=== PATIENT | female | born 2000 | race Asian ===

== ENCOUNTER 2019-08-20 13:25 | Inpatient (IN) ==
[2019-08-20 14:06] LABS: Basophils # (auto) 0.01 K/uL (0-0.2); Basophils % (auto) 0.1 %; Eosinophils # (auto) 0.35 K/uL (0-0.5); Eosinophils % (auto) 3.7 %; Hematocrit (blood only) 41.7 % (37-47); Immature Granulocytes # (auto) 0.02 K/uL (0.00-0.02); Immature Granulocytes % (auto) 0.2 %; Mean Corpuscular Hemoglobin 29.2 pg (25-34); Mean Corpuscular Hgb Conc 33.6 g/dL (32-36); Mean Corpuscular Volume 87.1 fL (80-100); Mean Platelet Volume 11.1 fL (7.4-10.4); Monocytes # (auto) 0.57 K/uL (0.11-0.59); Monocytes % (auto) 6.1 %; Neutrophils # (auto) 6.99 K/uL (1.4-6.5); Neutrophils % (auto) 74.9 %; Platelet Count 233 K/uL (130-400); RDW Coefficient of Variation 12.9 % (11.5-14.5); RDW Standard Deviation 41.2 fL (36.4-46.3); Red Blood Count 4.79 M/uL (4.2-5.4); White Blood Count 9.34 K/uL (4.8-10.8)
[2019-08-20 14:17] LABS: Appearance Urine Clear (Clear); Bilirubin Urine Negative (Negative); Blood Urine Negative (Negative); Color Urine Yellow; Glucose Urine UA Negative (Negative); Ketones Urine Trace (Negative); Leukocyte Esterase Urine Negative (Negative); Nitrite Urine Negative (Negative); Protein Urine Negative (Negative); Specific Gravity Urine 1.019 (1.000-1.030); Urobilinogen Urine Negative (Negative)
[2019-08-20 14:22] LABS: Amphetamines+Metham, Urine Neg (Neg); Barbiturates, Urine Neg (Neg); Benzodiazepine, Urine Neg (Neg); Cocaine, Urine Neg (Neg); MDMA (Ecstacy), Urine Neg (Neg); Methadone, Urine Neg (Neg); Opiate, Urine Neg (Neg); Phencyclidine, Urine Neg (Neg)
[2019-08-20 14:23] LABS: Albumin Level 3.9 gm/dl (3.4-5.0); BUN Creatinine Ratio 13.7 (10-20); Calcium 9.2 mg/dl (8.5-10.1); Creatinine Clr Calc Pharmacy 127.3 ml/min; Est GFR (Non-African American) 112.1; Potassium 3.7 mmol/L (3.5-5.1)
[2019-08-20 14:34] LABS: Bilirubin,Total 0.5 mg/dl (0.2-1); Thyroid Stimulating Hormone 1.6 uIu/ml (0.300-4.500); Total Protein 7.9 gm/dl (6.4-8.2)
[2019-08-20 15:05] LABS: Acetaminophen < 2 ug/ml (10-30); Salicylate < 1.7 mg/dl (2.8-20)
--- NOTE | 2019-08-20 15:16 | Emergency Department Note ---
Entered by Melecio Buitrago acting as a scribe for Bahman Bañuelos MD History of Present Illness General Chief complaint: Mental Health Evaluation Stated complaint: DEPRESSION,THOUGHTS OF SUICIDE Time Seen by Provider: 08/20/19 13:39 Source: patient History of Present Illness Provider complaint: Suicidal ideation Onset (ago): hour(s) less than 1 Location: head Pain Consistency: + constant Quality: + other (mental health ) Associated symptoms: + denies other symptoms The patient is a 19 y/o female with a past medical history of, who presents to the emergency department for a mental health evaluation. The patient came from [facility], where they state she has a plan to jump out of her apartment building on Monday. The patient states that she has depression and she has been struggling recently. She notes that many stressors contribute to her depression. The patient states that she has self-harmed in the past with the most recent being a month or two ago. She reports she sees a therapist and has had the depression since she was 11 y/o but has not taken medication. She notes that she planned to do the plan on Monday because she has a formal that day and wanted to end on a good note. The patient denies homicidal ideation and any other symptoms. Home Medications Home Medications Medication Instructions Recorded Confirmed Type No Known Home Medications 08/20/19 08/20/19 History Allergies Allergy/AdvReac Type Severity Reaction Status Date / Time No Known Allergies Allergy Unverified 08/20/19 15:08 Past Med/Surg History Medical History Depression Surgical History No pertinent past surgical history Social History Smoking Status: Never smoker Review of Systems See HPI for pertinent positives & negatives. and A total of 10 systems reviewed and were otherwise negative Physical Exam Vital Signs Vital Signs - 24 hr 08/20/19 13:27 Temperature 36.5 C Temperature Source Oral Pulse Rate 99 H Respiratory Rate 18 Respiratory Effort / Characteristics Non-Labored Spontaneous Respiratory Depth Normal Blood Pressure 135/82 Blood Pressure Mean 99 Pulse Oximetry 97 Oxygen Delivery Method Room Air Sepsis Recent Fever Within 48 Hours No Sepsis New/Unexplained Change in Mental Status No Sepsis Action Taken by Nursing No Action Required GENERAL: Well appearing, well nourished, NAD, non-toxic. EYE EXAM: Normal conjunctiva. PERRL, no anisocoria and EOM's grossly intact w/o pain. OROPHARYNX: Moist mucus membranes. Grossly normal dentition. NECK: Supple, no nuchal rigidity, no adenopathy, non-tender. No signs of meningismus. LUNGS: Clear to auscultation. Normal chest wall mechanics. HEART: NSR, no MRG. ABDOMEN: Abdomen soft, non-tender, normo-active bowel sounds, no masses, no rebound or guarding. BACK: No CVA TTP. SKIN: No rashes and no bruising. UPPER EXTREMITIES: Upper extremities are grossly normal. LOWER EXTREMITIES: No pitting edema. No calf pain. NEURO EXAM: A&O x3, cranial nerves II-XII grossly intact, normal speech, moves all 4 extremities on command w/o issue. PSYCH: depressed mood, positive SI, No HI AVH. Course Course 1400: Past medical records reviewed. The patient was evaluated in room A07. A complete history and physical exam was performed. 1513: The patient was transferred to [address] [place] [address]. Medical Decision Making Differential Diagnosis differential includes toxic ingestions, self-mutilation, suicidal ideation, suicide attempt, depression. Medical Records Attestation: I reviewed the patient's medical records. Home Medications Current Medication List: was personally reviewed by me Laboratory Data Attestation: I reviewed the patient's lab results. Result diagrams: 08/20/19 13:47 08/20/19 13:47 Lab Results 08/20/19 08/20/19 08/20/19 Range/Units 13:30 13:30 13:30 WBC (4.8-10.8) K/uL RBC (4.2-5.4) M/uL Hgb (12.0-16.0) g/dL Hct (37-47) % MCV (80-100) fL MCH (25-34) pg MCHC (32-36) g/dL RDW Std Deviation (36.4-46.3) fL RDW Coeff of Nina (11.5-14.5) % Plt Count (130-400) K/uL MPV (7.4-10.4) fL Immature Gran % (Auto) % Neut % (Auto) % Lymph % (Auto) % Frio % (Auto) % Eos % (Auto) % Baso % (Auto) % Immature Gran # (Auto) (0.00-0.02) K/uL Neut # (Auto) (1.4-6.5) K/uL Lymph # (Auto) (1.2-3.4) K/uL Frio # (Auto) (0.11-0.59) K/uL Eos # (Auto) (0-0.5) K/uL Baso # (Auto) (0-0.2) K/uL Sodium (136-145) mmol/L Potassium (3.5-5.1) mmol/L Chloride (98-107) mmol/L Carbon Dioxide (21-32) mmol/L Anion Gap (3-11) BUN (7-18) mg/dl Creatinine (0.6-1.2) mg/dl Est Cr Clr Drug Dosing ml/min Est GFR ( Amer) Est GFR (Non-Af Amer) BUN/Creatinine Ratio (10-20) Glucose (70-99) mg/dl Calcium (8.5-10.1) mg/dl Total Bilirubin (0.2-1) mg/dl AST (15-37) U/L ALT (12-78) U/L Alkaline Phosphatase (45-117) U/L Total Protein (6.4-8.2) gm/dl Albumin (3.4-5.0) gm/dl Globulin (2.5-4.0) gm/dl Albumin/Globulin Ratio (0.9-2) TSH (0.300-4.500) uIu/ml Urine Color Yellow Urine Appearance Clear (Clear) Urine pH 7.0 (4.5-7.5) Ur Specific Franklin 1.019 (1.000-1.030) Urine Protein Negative (Negative) Urine Glucose (UA) Negative (Negative) Urine Ketones Trace H (Negative) Urine Blood Negative (Negative) Urine Nitrite Negative (Negative) Urine Bilirubin Negative (Negative) Urine Urobilinogen Negative (Negative) Ur Leukocyte Esterase Negative (Negative) Urine Test Negative (Negative) Salicylates (2.8-20) mg/dl Urine Opiates Screen Neg (Neg) Ur Methadone, Qual Neg (Neg) Acetaminophen (10-30) ug/ml Urine Barbiturates Neg (Neg) Ur Phencyclidine (PCP) Neg (Neg) U Amphetamin/Meth Scrn Neg (Neg) MDMA (Ecstasy) Screen Neg (Neg) U Benzodiazepines Scrn Neg (Neg) Ur Cocaine Metabolite Neg (Neg) U Marijuana (THC) Screen Pos H (Neg) Ethyl Alcohol mg/dL (0-3) mg/dl 08/20/19 08/20/19 08/20/19 Range/Units 13:47 13:47 13:47 WBC 9.34 (4.8-10.8) K/uL RBC 4.79 (4.2-5.4) M/uL Hgb 14.0 (12.0-16.0) g/dL Hct 41.7 (37-47) % MCV 87.1 (80-100) fL MCH 29.2 (25-34) pg MCHC 33.6 (32-36) g/dL RDW Std Deviation 41.2 (36.4-46.3) fL RDW Coeff of Nina 12.9 (11.5-14.5) % Plt Count 233 (130-400) K/uL MPV 11.1 H (7.4-10.4) fL Immature Gran % (Auto) 0.2 % Neut % (Auto) 74.9 % Lymph % (Auto) 15.0 % Frio % (Auto) 6.1 % Eos % (Auto) 3.7 % Baso % (Auto) 0.1 % Immature Gran # (Auto) 0.02 (0.00-0.02) K/uL Neut # (Auto) 6.99 H (1.4-6.5) K/uL Lymph # (Auto) 1.40 (1.2-3.4) K/uL Frio # (Auto) 0.57 (0.11-0.59) K/uL Eos # (Auto) 0.35 (0-0.5) K/uL Baso # (Auto) 0.01 (0-0.2) K/uL Sodium 138 (136-145) mmol/L Potassium 3.7 (3.5-5.1) mmol/L Chloride 108 H (98-107) mmol/L Carbon Dioxide 25 (21-32) mmol/L Anion Gap 5.0 (3-11) BUN 10 (7-18) mg/dl Creatinine 0.76 (0.6-1.2) mg/dl Est Cr Clr Drug Dosing 127.3 ml/min Est GFR ( Amer) 130.0 Est GFR (Non-Af Amer) 112.1 BUN/Creatinine Ratio 13.7 (10-20) Glucose 101 H (70-99) mg/dl Calcium 9.2 (8.5-10.1) mg/dl Total Bilirubin 0.5 (0.2-1) mg/dl AST 31 (15-37) U/L ALT 37 (12-78) U/L Alkaline Phosphatase 84 (45-117) U/L Total Protein 7.9 (6.4-8.2) gm/dl Albumin 3.9 (3.4-5.0) gm/dl Globulin 4.0 (2.5-4.0) gm/dl Albumin/Globulin Ratio 1.0 (0.9-2) TSH 1.600 (0.300-4.500) uIu/ml Urine Color Urine Appearance (Clear) Urine pH (4.5-7.5) Ur Specific Franklin (1.000-1.030) Urine Protein (Negative) Urine Glucose (UA) (Negative) Urine Ketones (Negative) Urine Blood (Negative) Urine Nitrite (Negative) Urine Bilirubin (Negative) Urine Urobilinogen (Negative) Ur Leukocyte Esterase (Negative) Urine Test (Negative) Salicylates < 1.7 L (2.8-20) mg/dl Urine Opiates Screen (Neg) Ur Methadone, Qual (Neg) Acetaminophen < 2 L (10-30) ug/ml Urine Barbiturates (Neg) Ur Phencyclidine (PCP) (Neg) U Amphetamin/Meth Scrn (Neg) MDMA (Ecstasy) Screen (Neg) U Benzodiazepines Scrn (Neg) Ur Cocaine Metabolite (Neg) U Marijuana (THC) Screen (Neg) Ethyl Alcohol mg/dL (0-3) mg/dl 08/20/19 Range/Units 13:47 WBC (4.8-10.8) K/uL RBC (4.2-5.4) M/uL Hgb (12.0-16.0) g/dL Hct (37-47) % MCV (80-100) fL MCH (25-34) pg MCHC (32-36) g/dL RDW Std Deviation (36.4-46.3) fL RDW Coeff of Nina (11.5-14.5) % Plt Count (130-400) K/uL MPV (7.4-10.4) fL Immature Gran % (Auto) % Neut % (Auto) % Lymph % (Auto) % Frio % (Auto) % Eos % (Auto) % Baso % (Auto) % Immature Gran # (Auto) (0.00-0.02) K/uL Neut # (Auto) (1.4-6.5) K/uL Lymph # (Auto) (1.2-3.4) K/uL Frio # (Auto) (0.11-0.59) K/uL Eos # (Auto) (0-0.5) K/uL Baso # (Auto) (0-0.2) K/uL Sodium (136-145) mmol/L Potassium (3.5-5.1) mmol/L Chloride (98-107) mmol/L Carbon Dioxide (21-32) mmol/L Anion Gap (3-11) BUN (7-18) mg/dl Creatinine (0.6-1.2) mg/dl Est Cr Clr Drug Dosing ml/min Est GFR ( Amer) Est GFR (Non-Af Amer) BUN/Creatinine Ratio (10-20) Glucose (70-99) mg/dl Calcium (8.5-10.1) mg/dl Total Bilirubin (0.2-1) mg/dl AST (15-37) U/L ALT (12-78) U/L Alkaline Phosphatase (45-117) U/L Total Protein (6.4-8.2) gm/dl Albumin (3.4-5.0) gm/dl Globulin (2.5-4.0) gm/dl Albumin/Globulin Ratio (0.9-2) TSH (0.300-4.500) uIu/ml Urine Color Urine Appearance (Clear) Urine pH (4.5-7.5) Ur Specific Franklin (1.000-1.030) Urine Protein (Negative) Urine Glucose (UA) (Negative) Urine Ketones (Negative) Urine Blood (Negative) Urine Nitrite (Negative) Urine Bilirubin (Negative) Urine Urobilinogen (Negative) Ur Leukocyte Esterase (Negative) Urine Test (Negative) Salicylates (2.8-20) mg/dl Urine Opiates Screen (Neg) Ur Methadone, Qual (Neg) Acetaminophen (10-30) ug/ml Urine Barbiturates (Neg) Ur Phencyclidine (PCP) (Neg) U Amphetamin/Meth Scrn (Neg) MDMA (Ecstasy) Screen (Neg) U Benzodiazepines Scrn (Neg) Ur Cocaine Metabolite (Neg) U Marijuana (THC) Screen (Neg) Ethyl Alcohol mg/dL < 3.0 (0-3) mg/dl Blood Pressure Blood Pressure Findings: Elevated blood pressure Blood Pressure Disposition: Referred to patients primary care provider MDM Narrative The patient is a 19 y/o female with a past medical history of, who presents to the emergency department for a mental health evaluation. The patient came from [facility], where they state she has a plan to jump out of her apartment building on Monday. Patient was seen and evaluated the bedside. The patient does relate she has a history of depression for many years. The patient is never tried all to any medications. The patient has had increasing thoughts of jumping out of her apartment window with the decision to do this is Monday. Patient does relate that she has multiple increase in stresses. The patient did have blood work completed. Patient was to medically cleared. Patient was seen and evaluated by psych manager of case management. The patient was referred to [facility] and accepted for voluntary inpatient psychiatric treatment. Impression & Plan Suicidal ideation, Depressed mood Discharge Plan Visit Data Chief Complaint: Mental Health Evaluation Stated Complaint: DEPRESSION,THOUGHTS OF SUICIDE ED Provider: Bahman Bañuelos Discharge Problem: Suicidal ideation, Depressed mood Patient Disposition: Admitted As Inpatient Forms Stand Alone Forms: My [facility], Suicide Prevention Resources Prescriptions Prescriptions: No Action No Known Home Medications RF: 0 Referrals Referrals: [facility] [Primary Care Provider] - The merariibindigo's documentation has been prepared under my direction and personally reviewed by me in its entirety. I confirm that the note above accurately reflects all work, treatment, procedures, and medical decision making performed by me.
[2019-08-20 15:19] LABS: Pregnancy Test, Urine Negative (Negative)
[2019-08-20] MEDS ORDERED: MAGNESIUM HYDROXIDE SUSP 30 ML UDC PO PRN (18:36)
[2019-08-20] MEDS ORDERED: ACETAMINOPHEN 325 MG TAB PO PRN (18:36)
[2019-08-20] MEDS ORDERED: hydrOXYzine HCl 10 MG TAB PO PRN (18:36)
[2019-08-20] MEDS ORDERED: BISMUTH SUBSALICYLATE PER ML OMNICELL CHARGE PO PRN (18:36)
[2019-08-20] MEDS ORDERED: SODIUM CHLORIDE 0.65% NA SOLN 45 ML (OCEAN) PRN (18:36)
[2019-08-20] MEDS ORDERED: ALUMINUM/MAGNESIUM SUSP 30 ML UDC PO PRN (18:36)
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
[2019-08-21] MEDS: lamoTRIgine 25 MG TAB PO SCH (15:56)
[2019-08-22] MEDS: lamoTRIgine 25 MG TAB PO SCH (09:35)
--- NOTE | 2019-08-22 13:48 | Psychiatric Progress Note ---
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 She reports strained relationship with her father and would like to work on it. She has never been on psychotropic medications but is willing for a trial of a mood stabilizer, as she reports frequent mood swings from elevated to depressed mood and meets criteria for bipolar II, although also may be a component of borderline PD. Discussed the differential with her and she agreed to a trial of lamotrigine. She would benefit for family meeting with parents and will need referral for therapy and psychiatry in the community, as she is graduating this month but plans to stay in the community. Patient is reporting rather rapid improvement in her mood, and continued observation is recommended to ensure stability of symptoms and continued resolution of suicidal ideation prior to discharge. Given history of fluctuations in mood, there is concern for consistent stability of symptoms. Patient is endorsing current resolution of suicidal ideation; however, concern remains for her rather detailed suicide plan and the fact that she anticipated acting on these thoughts tomorrow evening. Inpatient treatment is medically necessary due to the severity of symptoms and risk for suicide if discharged prematurely, without adequate medication of risk factors and involvement of outpatient supports. (1) Depression: 08/21 -continue voluntary inpatient treatment. Request records from [facility] to help clarify diagnosis - Differential includes MDD, Bipolar II and BPD; discussed with patient who is interested in starting medication for mood stabilizer. Reviewed risks, benefits, and side effects including Naranjo Sanjiv Syndrome. Reviewed alternatives including lithium and atypical antipsychotics. Provided her with an UpToDate handout on lamotrigine and she agreed to a trial. Start 25mg daily x 2 weeks, then 50mg daily, following standard dose titration schedule. 08/22 - Pt reports rather rapid improvement in mood symptoms, though affect is incongruent with these reports - Continue lamotrigine initiated yesterday, continue standard titration schedule - Reviewed need to coordinate aftercare plans, as patient will be graduating in August and will then require new prescriber/therapist - Reviewed importance of a meeting with outpatient supports in order to discuss discharge and safety planning (2) Eating disorder: 08/21 -patient denies active eating disorder symptoms, but has a history of binge eating/bulimia. Monitor intake and provide psychoeducation regarding the importance of good nutrition. -Coordinate with eating disorder treatment providers at [facility] Risk Factors Assessment Male: No : No Do You Have Access To A Gun?: No Health Problems: No Mental Health Diagnoses: Yes Substance Use Disorders: No Previous Attempt: No Family History of Suicide: No Previous Psychiatric Hospitalization: No Hopelessness: Yes Protective Factors Assessment Jain Beliefs: No : No Responsible for Young Children: No Employed: No Stable Relationships: Yes Supportive Family: Yes Good Rapport with Provider: Yes Interval History Identifying Information SHASHI TONEY is a 19-year-old [employer] student from [place] who has a history of depression and eating disorder and was admitted on 08/20/19 17:50 on a 201 voluntary commitment for worsening mood and suicidal thoughts with a plan to jump from her apartment building this Monday. Chief Complaint "I'm feeling tired." Review of Systems Notes Constitutional: reports fatigue Cardiovascular: denied Respiratory: denied Gastrointestinal: denied Neurological: denied Psychiatric: denies symptoms other than stated above Total of at least 10 systems reviewed, pertinent positives as above and in HPI. Sleep Information Total Hours of Sleep: 6.25 Meal Information Percent Meal Consumed - Breakfast: 90 Percent Meal Consumed - Lunch: 100 Percent Meal Consumed - Dinner: 75 Subjective Subjective Patient was seen & assessed and interval progress reviewed with nursing and social work. Reports the patient had a visit from friends last evening. She is reported anticipated graduation in August, though has not solidified where she will live after this. Patient's aftercare services will likely be discontinued after graduation, as they are currently provided through the [facility]. Patient was seen today to assess progress since admission. She reports feeling "tired" today. She has been observed to be present in some group activities; however, was found to be laying in bed sleeping just prior to our encounter. Patient states that her day yesterday was "busy", stating that she was "talking to so many people it made me tired." Surprisingly, patient states that her mood is "getting better, like completely better." Patient states that her mood improved rather dramatically after "an open conversation with my parents the first night I came here." Despite her reports of open communication, patient is not agreeable to involving her parents and a family meeting. She is willing to consider involving her friends, and will discuss this with them during a visit tonight. Patient does inquire about discharge timeline, and was updated on schedule of treatment team meetings where length of stay is estimated. Patient was asked her impression of appropriate discharge timeline. She states "the sooner the better, but I definitely do not want to push myself too hard. I am still pretty anxious and apprehensive about leaving, I do not want things to go back to where they were. Patient denies current suicidal ideation, but is able to recognize desire for stability of mood symptoms prior to recommending a discharge. She denies other needs or concerns today. Physical Exam Psychiatric Orientation: alert, oriented x 3 and cooperative (Though somewhat withdrawn) Apperance: appropriately dressed, appropriately groomed and appeared stated age Eye Contact: good eye contact Motor Behavior: steady gait and station and no abnormal motor movements Speech: normal rate/rhythm/volume of speech (Somewhat monotone speech) Affect: + flat affect; + mood not congruent with affect Mood: no depressed mood ("Getting better, like completely better") and no anxious mood Thought Process: goal directed thought process, clear/coherent thought process and thought association intact Thought Content: reality based without delusions; no hopelessness Suicidal Thoughts: denies suicidal thoughts Homicidal Thoughts: denies homicidal thoughts Hallucinations: no auditory hallucinations and no visual hallucinations Cognition: attention grossly intact and language grossly intact Insight: + fair insight Judgement: + fair judgement Vital Signs (Past 24 Hours) Last Vital Signs Temp 36.7 C 08/22/19 06:58 Pulse 93 H 08/22/19 06:59 Resp 16 08/22/19 06:58 BP 99/59 L 08/22/19 06:59 Pulse Ox 93 08/20/19 18:14 Results & Data Current Inpatient Medications Current Inpatient Medications: Current Inpatient Medications Acetaminophen (Tylenol) 650 mg PO Q4H PRN PRN Reason: Headache or Minor Fever Stop: 09/19/19 18:35 Al Hydrox/Mg Hydrox/Simethicone (Maalox) 30 ml PO Q4H PRN PRN Reason: GI Upset Stop: 09/19/19 18:35 Bismuth Subsalicylate (Kaopectate) 15 ml PO PRN PRN PRN Reason: Loose Stool Stop: 09/19/19 18:35 Hydroxyzine HCl (Vistaril) 25 mg PO Q4H PRN PRN Reason: Anxiety Stop: 09/19/19 18:35 Hydroxyzine HCl (Vistaril) 50 mg PO HSZ PRN PRN Reason: Sleep Stop: 09/20/19 22:48 Last Admin: 08/21/19 22:59 Dose: 50 mg Documented by: Lamotrigine (Lamictal) 25 mg PO QAM GABI Stop: 09/20/19 15:59 Last Admin: 08/22/19 09:35 Dose: 25 mg Documented by: Magnesium Hydroxide (Milk Of Magnesia) 30 ml PO DAILY PRN PRN Reason: Constipation Stop: 09/19/19 18:35 Sodium Chloride (Blaine Nasal) 1 - 2 sprays NA PRN PRN PRN Reason: Nasal Dryness/Congestion Stop: 09/19/19 18:35 Mental Health & Subst Abuse Tx Therapist Name of Therapist: AIDE Therapist's Manufacturing Cost Estimator Name of Manufacturing Cost Estimator: . Post Discharge Appointments Primary Care Physician Name Of Family Doctor: [facility] Primary Care Provider Appointment Comment: As needed Contact Information Discharge Discharge Address: [address] [place] [id number] (1) Depression Depression Type: unspecified Qualified Code(s): F32.9 - Major depressive disorder, single episode, unspecified
--- NOTE | 2019-08-22 16:05 | Communication Note ---
Date of Service: August 22, 2019 Progress Notes from [facility] Sessions Received and Reviewed: 06/06/19 - 08/19/19 Diagnoses: no formal diagnoses listed; however, suggested "long-standing symptoms" of depression, anxiety, and disordered eating 06/06/19 - Patient attended urgent therapy appointment, reporting "chronic thoughts of suicide" initially, but then "clarified that she meant her SI has been more episodic and therefore normalized in her life." Patient endorsed significant hopelessness and depression in the spring 2018, but had denied SI within the past month. It is reported she had not demonstrated any "atypical behaviors" during the initial session. Seemingly inconsistent with reports regarding suicidality, having to clarify multiple times whether she was talking about current or past suicidal history. Patient's affect was described to be "bright and engaged." Group therapies were encouraged. 06/16/19 - Patient presented for urgent follow-up appointment. She had endorsed elevated depression, increased anxiety, academic stress, and eating concerns. She denied any suicidal thoughts. Patient had endorsed an episode of purging the weekend prior to this appointment. She described herself as having "a really complicated and unhealthy relationship with food." Plan was for her to be introduced to the [facility] group through the [facility]. 07/01/19 - Patient presented for urgent follow-up appointment. Denied suicidal ideation, but admitted to "passive thoughts of wanting to escape." She admitted to engaging in SIB the week prior to this visit. She denied this was an attempt in her life. It is reported patient missed the first meeting of the [facility] Group. 07/15/19 - Attended "clinical check-in appointment today." Reviewed reactions to [facility] group for most of session. 07/30/19 - Brief clinical check-in appointment. Patient had endorsed passive suicidal thoughts, but strongly denied having a plan or intent to act. Stated she had been doing "better overall." They called to set patient up with a it support analyst prior to her graduation in August 2019. 08/19/19 - Patient attend urgent scheduled appointment. Patient reports irritability was exacerbated by visiting family over the holiday. Suicidality reportedly increased in frequency over the past 1.5 weeks, admitting to daily thoughts of "wanting to or escape." Patient had admitted to thoughts "about setting a date to kill myself, of Monday." Patient did share this thought with a friend over the holiday. She states that her thoughts had improved just prior to the scheduled appointment. She did endorse a plan to jump "from the fourth floor of my apartment building." She denied any active furtherance. Option of voluntary hospital admission was discussed. Patient reportedly inquired about possibility of bipolar disorder "because I have extreme shifts" in mood, energy, and functioning. Patient had inquired about initiation of medications to help with her mood. Patient verbalized a safety plan, and was agreeable to using crisis services. Follow-up was scheduled 2 days later.
[2019-08-23 00:30] LABS: Marijuana Quant, GCMS Urine 54 ng/mL (<5)
[2019-08-23] MEDS: lamoTRIgine 25 MG TAB PO SCH (09:40)
--- NOTE | 2019-08-23 09:50 | Psychiatric Progress Note ---
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 for mood and eating disorder symptoms and was referred by her therapist there for worsening mood and suicidal ideation with a plan to jump off her apartment building this Monday. She reports strained relationship with her father and would like to work on it. She has never been on psychotropic medications but is willing for a trial of a mood stabilizer, as she reports frequent mood swings from elevated to depressed mood and meets criteria for bipolar II, although also may be a component of borderline PD. Discussed the differential with her and she agreed to a trial of lamotrigine. She would benefit for family meeting with parents and will need referral for therapy and psychiatry in the community, as she is graduating this month but plans to stay in the community. Patient is reporting rather rapid improvement in her mood, and continued observation is recommended to ensure stability of symptoms and continued resolution of suicidal ideation prior to discharge. Given history of fluctuations in mood, there is concern for consistent stability of symptoms. Patient is endorsing current resolution of suicidal ideation; however, concern remains for her rather detailed suicide plan and the fact that she anticipated acting on these thoughts this evening. She also has only limited time with current outpatient provider, as she will be graduating this month - therefore, other aftercare options will need to be arranged. Inpatient treatment is medically necessary due to the severity of symptoms and risk for suicide if discharged prematurely, without adequate medication of risk factors and involvement of outpatient supports. (1) Depression: 08/21 -continue voluntary inpatient treatment. Request records from [facility] to help clarify diagnosis - Differential includes MDD, Bipolar II and BPD; discussed with patient who is interested in starting medication for mood stabilizer. Reviewed risks, benefits, and side effects including Naranjo Sanjiv Syndrome. Reviewed alternatives including lithium and atypical antipsychotics. Provided her with an UpToDate handout on lamotrigine and she agreed to a trial. Start 25mg daily x 2 weeks, then 50mg daily, following standard dose titration schedule. 12/5 - Pt reports rather rapid improvement in mood symptoms, though affect is incongruent with these reports - Continue lamotrigine initiated yesterday, continue standard titration schedule - Reviewed need to coordinate aftercare plans, as patient will be graduating in August and will then require new prescriber/therapist - Reviewed importance of a meeting with outpatient supports in order to discuss discharge and safety planning 08/23 - Continue lamotrigine - standard titration as tolerated - Schedule family meeting with parents - Encourage continued work on development of healthy and effective coping strategies, encourage communication with supports - Pt directed to patient workbook for readings and worksheets to address stressors; encouraged to reach out for 1:1 sessions to process as needed - Encouraged to complete safety plan (2) Eating disorder: 08/21 -patient denies active eating disorder symptoms, but has a history of binge eating/bulimia. Monitor intake and provide psychoeducation regarding the importance of good nutrition. -Coordinate with eating disorder treatment providers at [facility] Risk Factors Assessment Male: No : No Do You Have Access To A Gun?: No Health Problems: No Mental Health Diagnoses: Yes Substance Use Disorders: No Previous Attempt: No Family History of Suicide: No Previous Psychiatric Hospitalization: No Hopelessness: Yes Protective Factors Assessment Taoism Beliefs: No : No Responsible for Young Children: No Employed: No Stable Relationships: Yes Supportive Family: Yes Good Rapport with Provider: Yes Interval History Identifying Information SHASHI TONEY is a 19-year-old [employer] student from [place] who has a history of depression and eating disorder and was admitted on 08/20/19 17:50 on a 201 voluntary commitment for worsening mood and suicidal thoughts with a plan to jump from her apartment building this Monday. Chief Complaint " I am feeling pretty good. I would like to set up that meeting with my parents." Review of Systems Notes Constitutional: denied Cardiovascular: denied Respiratory: denied Gastrointestinal: denied Neurological: denied Psychiatric: denies symptoms other than stated above Total of at least 10 systems reviewed, pertinent positives as above and in HPI. Sleep Information Total Hours of Sleep: 5.5 Sleep Comments: requested 25 mg of vistaril for sleep aid Meal Information Percent Meal Consumed - Breakfast: 100 Percent Meal Consumed - Lunch: 90 Percent Meal Consumed - Dinner: 75 Subjective Subjective Patient was seen & assessed and interval progress reviewed with treatment team. Staff reports the patient has indicated family stress may have played a larger role in her worsening mood and suicidal ideation than patient originally expressed. We are still encouraging a family meeting with her parents, to discuss safety and aftercare planning. According to patient's statements at time of admission, she had intended to carry out her suicide plan this evening, making a discharge today very high risk. Patient was seen today to assess progress since admission. She begins her session by stating she is "pretty good", and stating that she wishes to arrange a family meeting with her father in order to "plan for discharge." Patient gives this provider an indication of when her parents would be free for a phone meeting, which will be passed on to social work for scheduling. Patient continues to report improvement in her mood, stating "I had only positive thoughts." Patient does state that she is "excited" today as "my best friend, who lives in [place], is planning to come see me tonight." Patient states that this makes her feel very good, as "she cares about me enough to spend her time and money to see me." Patient continues to express questions regarding discharge timeline; however, follows of these questions by stating "I guess I really haven't deeply thought about the things that brought me in." Patient was cooperative with the discussion to review her primary stressors outside of the hospital, she states "I am worried about facing everything that I have dropped. I have to make up schoolwork, a lot of it is presentations." Patient does express some anticipatory anxiety related to discharge, specifically in regards to "socializing with people, people are to be asking why I was in the hospital for a week." We reviewed recommendations that patient be open and honest with identified supports, but also rehearsed some generic statements patient can use for questions she does not feel comfortable answering. Patient states "how can I work on other things, I guess I have not had the time set aside to worry about my stress." Patient was encouraged to utilize her patient handbook for topics that may apply to think she personally struggles with. She was also encouraged to utilize counselors, to process these topics one-on-one. The patient was also directed to her safety plan, informed she will eventually complete one prior to discharge. Patient does admit to resolution of her suicidal ideation, but is beginning to realize that she would like to invest more time into her treatment here. She denies other needs or concerns today. Patient was seen right after our evaluation working through her book independently. Physical Exam Psychiatric Orientation: alert, oriented x 3 and cooperative (and pleasant) Apperance: appropriately dressed, appropriately groomed and appeared stated age Eye Contact: good eye contact Motor Behavior: steady gait and station and no abnormal motor movements Speech: normal rate/rhythm/volume of speech Affect: + blunted affect Mood: + anxious mood (regarding missed school work and anticipatory anxiety about discharge); no depressed mood ("Pretty good") Thought Process: goal directed thought process, clear/coherent thought process and thought association intact Thought Content: reality based without delusions; no hopelessness Suicidal Thoughts: denies suicidal thoughts and denies suicidal intent Homicidal Thoughts: denies homicidal thoughts Hallucinations: no auditory hallucinations and no visual hallucinations Cognition: attention grossly intact and language grossly intact Insight: + fair insight Judgement: + fair judgement Vital Signs (Past 24 Hours) Last Vital Signs Temp 36.7 C 08/23/19 06:19 Pulse 91 H 08/23/19 06:20 Resp 16 08/23/19 06:19 BP 109/61 08/23/19 06:20 Pulse Ox 93 08/20/19 18:14 Results & Data Laboratory Results Laboratory Results - last 24 hr 08/20/19 13:30 U Marijuana THC Carboxy 54 H Drug Screen Comment SEE NOTE Current Inpatient Medications Current Inpatient Medications: Current Inpatient Medications Acetaminophen (Tylenol) 650 mg PO Q4H PRN PRN Reason: Headache or Minor Fever Stop: 09/19/19 18:35 Al Hydrox/Mg Hydrox/Simethicone (Maalox) 30 ml PO Q4H PRN PRN Reason: GI Upset Stop: 09/19/19 18:35 Bismuth Subsalicylate (Kaopectate) 15 ml PO PRN PRN PRN Reason: Loose Stool Stop: 09/19/19 18:35 Hydroxyzine HCl (Vistaril) 25 mg PO Q4H PRN PRN Reason: Anxiety Stop: 09/19/19 18:35 Last Admin: 08/22/19 23:38 Dose: 25 mg Documented by: Hydroxyzine HCl (Vistaril) 50 mg PO HSZ PRN PRN Reason: Sleep Stop: 09/20/19 22:48 Last Admin: 08/21/19 22:59 Dose: 50 mg Documented by: Lamotrigine (Lamictal) 25 mg PO QAM GABI Stop: 09/20/19 15:59 Last Admin: 08/23/19 09:40 Dose: 25 mg Documented by: Magnesium Hydroxide (Milk Of Magnesia) 30 ml PO DAILY PRN PRN Reason: Constipation Stop: 09/19/19 18:35 Sodium Chloride (Dell Nasal) 1 - 2 sprays NA PRN PRN PRN Reason: Nasal Dryness/Congestion Stop: 09/19/19 18:35 Mental Health & Subst Abuse Tx Therapist Name of Therapist: AIDE Therapist's Pharmacy Technician Trainee Name of Pharmacy Technician Trainee: . Post Discharge Appointments Primary Care Physician Name Of Family Doctor: [facility] Primary Care Provider Appointment Comment: As needed Contact Information Discharge Discharge [address]: [address] [place] [address],[place] [id number] (1) Depression Depression Type: unspecified Qualified Code(s): F32.9 - Major depressive disorder, single episode, unspecified
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
[2019-08-24] MEDS: lamoTRIgine 25 MG TAB PO SCH (10:04)
== END 2019-08-24 11:50 | disposition home or self-care (01) | DRG 885 ==
LOC: ED 13:25 → 3S 17:50